=== PATIENT | female | born 1980 | race Caucasian/White ===

== ENCOUNTER 2017-11-02 08:31 | Day surgery (SDC) | payer BC ==
[~2017-11-02] VITALS: Ht 157.5 cm; Wt 76.2 kg
[~2017-11-02 08:31] MED LIST: ACYC400 PO; ALBU90OI INH; Advil200 M1 PO; CYCL10 PO; DIPH50 PO; Flonase 0.05% N16 GM; Ortho Tri-Cycl1 EACH PO; Pulmicort Flex90 MCG INH; TUMS PO; [UNRECOGNIZED DRUG - OTHER] PO
== END 2017-11-02 22:49 | disposition home or self-care (01) ==
LOC: ORSCMMR 08:31
PROVIDERS: Surgery
PROC: 0WUF0JZ Supplement Abdominal Wall with Synthetic Substitute, Open Approach (ICD-10-PCS; principal; 2017-11-02 10:00)
DX: K43.6 Other and unspecified ventral hernia with obstruction, without gangrene (principal); J45.909 Unspecified asthma, uncomplicated; Z79.899 Other long term (current) drug therapy
CPT/HCPCS: C1781; J0690; J1100; J2250; J2405; J2710; J3010; J7120

== ENCOUNTER 2017-11-23 13:45 | Emergency (ER) | payer BC ==
[~2017-11-23] VITALS: Ht 152.4 cm; Wt 90.7 kg
[2017-11-23] MEDS ORDERED: TRINESSA LO TA1 EACH (14:35)
[2017-11-23] MEDS ORDERED: Hydrocodone-Ap1 EA23 (14:35)
[2017-11-23 15:12] LABS: BASOPHILS ABSOLUTE AUTO 0.06 K/mm3 (0.00-0.23); BASOPHILS PERCENT AUTO 1 % (0-2); EOSINOPHILS ABSOLUTE AUTO 0.09 K/mm3 (0.00-0.68); EOSINOPHILS PERCENT AUTO 1 % (0-6); Hematocrit 38.5 % (33.0-51.0); Hemoglobin 12.7 g/dL (11.5-16.0); IMMATURE GRAN ABSOLUTE AUTO 0.01 K/mm3 (0.00-0.10); IMMATURE GRAN PERCENT AUTO 0 % (0-1); LYMPHOCYTES ABSOLUTE AUTO 2.14 K/mm3 (0.84-5.20); LYMPHOCYTES PERCENT AUTO 27 % (21-46); MONOCYTES ABSOLUTE AUTO 0.52 K/mm3 (0.16-1.47); MONOCYTES PERCENT AUTO 7 % (4-13); Mean Corpuscular HGB 29.3 pg (26.0-34.0); Mean Corpuscular Volume 89 fL (80-100); Mean Platelet Volume 10.1 fL (9.1-12.4); NEUTROPHILS ABSOLUTE AUTO 5.03 K/mm3 (1.96-9.15); NEUTROPHILS PERCENT AUTO 64 % (41-73); Platelet Count 363 K/mm3 (150-400); RDW Coefficient Variation 12.8 % (11.7-14.2); Red Blood Cell Count 4.33 M/mm3 (3.80-5.20); White Blood Cell Count 7.85 K/mm3 (4.00-11.30)
[2017-11-23 15:36] LABS: Alanine Aminotransfer (ALT/SGP 21 U/L (12-78); Albumin, Blood 3.9 g/dL (3.4-5.0); Albumin/Globulin Ratio 1.1 (0.8-1.8); Alk Phos 21 U/L (50-136); Anion Gap 9 mmol/L (6-16); Aspartate Aminotrans (AST/SGOT 14 U/L (12-37); Bilirubin, Total 0.3 mg/dL (0.1-1.0); Blood Urea Nitrogen 12 mg/dL (8-24); Bun/Creatinine Ratio 15.8 (12.0-20.0); CO2, Blood 23 mmol/L (21-32); Calcium, Blood 8.7 mg/dL (8.5-10.1); Chloride, Blood 107 mmol/L (98-108); Creatinine, Blood 0.76 mg/dL (0.40-1.00); Globulin, Blood 3.7 g/dL (2.2-4.0); Glomerular Filtration Rate >60 (60-); Glucose, Blood 85 mg/dL (70-99); Potassium, Blood 3.6 mmol/L (3.5-5.5); Sodium, Blood 139 mmol/L (136-145); Total Protein, Blood 7.6 g/dL (6.4-8.2)
[2017-11-23] MEDS ORDERED: LEVE500 PO (18:31)
[2017-11-23] MEDS ORDERED: DEXA4 PO (18:31)
== END 2017-11-23 18:46 | disposition home or self-care (01) ==
LOC: ER 13:45
PROVIDERS: Physician Assistant
DX: G93.89 Other specified disorders of brain (principal); H57.9 Unspecified disorder of eye and adnexa; J45.909 Unspecified asthma, uncomplicated; Z79.899 Other long term (current) drug therapy; Z79.1 Long term (current) use of non-steroidal anti-inflammatories (NSAID)
CPT/HCPCS: 36415; 70553; 80053; 81000; 81025; 85025; A9577

== ENCOUNTER 2017-11-30 00:07 | Day surgery (SDC) | payer BC ==
[~2017-11-30 00:07] MED LIST changes: +DEXA4 PO; +Hydrocodone-Ap1 EA23; +LEVE500 PO; +TRINESSA LO TA1 EACH
== END 2017-11-30 15:30 | disposition home or self-care (01) ==
LOC: ATC 00:07
DX: G93.9 Disorder of brain, unspecified (principal); G35 Multiple sclerosis; F41.9 Anxiety disorder, unspecified; Z87.891 Personal history of nicotine dependence; J45.909 Unspecified asthma, uncomplicated
CPT/HCPCS: 96365; J2930

== ENCOUNTER 2017-12-01 08:29 | Day surgery (SDC) | payer BC | END 2017-12-01 14:10 | disposition home or self-care (01) | LOC: ATC 08:29 | DX: G93.9 Disorder of brain, unspecified (principal); G35 Multiple sclerosis; F41.9 Anxiety disorder, unspecified; Z87.891 Personal history of nicotine dependence | CPT/HCPCS: 96365; J2930 ==

== ENCOUNTER 2017-12-02 00:06 | Day surgery (SDC) | payer BC | END 2017-12-02 14:09 | disposition home or self-care (01) | LOC: ATC 00:06 | DX: G93.9 Disorder of brain, unspecified (principal); G35 Multiple sclerosis; F41.9 Anxiety disorder, unspecified; J45.909 Unspecified asthma, uncomplicated; Z87.891 Personal history of nicotine dependence | CPT/HCPCS: 96365; J2930 ==

== ENCOUNTER 2018-07-22 16:41 | Emergency (ER) | payer BC ==
[~2018-07-22] VITALS: Ht 157.5 cm; Wt 61.7 kg
[2018-07-22] MEDS ORDERED: COPAXONE40 MG/1 ML SC (17:02)
[2018-07-22] MEDS ORDERED: VENL150ER PO (17:02)
[2018-07-22] MEDS ORDERED: PROP10 PO (17:03)
[2018-07-22] MEDS ORDERED: ALPR1 PO (17:03)
[2018-07-22 17:05] LABS: Source, Urine Clean Catch
[2018-07-22 17:17] LABS: Appearance, Urine Clear (Clear); Bilirubin, Urine Neg (Neg); Blood, Urine 2+ (Neg); Color, Urine Yellow (P-Yellow); Glucose Qualitative, Urine Neg (Neg); Ketones, Urine Neg (Neg); Leukocyte Esterase, Urine Neg (Neg); Nitrite, Urine Neg (Neg); Protein, Urine Neg (Neg); Specific Gravity, Urine 1.015 (1.003-1.022); Urobilinogen, Urine NORM (Normal)
[2018-07-22 17:20] LABS: BASOPHILS ABSOLUTE AUTO 0.04 K/mm3 (0.00-0.23); BASOPHILS PERCENT AUTO 1 % (0-2); EOSINOPHILS PERCENT AUTO 2 % (0-6); Hematocrit 39.2 % (33.0-51.0); Hemoglobin 12.7 g/dL (11.5-16.0); IMMATURE GRAN ABSOLUTE AUTO 0.01 K/mm3 (0.00-0.10); IMMATURE GRAN PERCENT AUTO 0 % (0-1); LYMPHOCYTES ABSOLUTE AUTO 1.24 K/mm3 (0.84-5.20); LYMPHOCYTES PERCENT AUTO 19 % (21-46); MONOCYTES ABSOLUTE AUTO 0.38 K/mm3 (0.16-1.47); MONOCYTES PERCENT AUTO 6 % (4-13); Mean Corpuscular HGB 29.6 pg (26.0-34.0); Mean Corpuscular HGB Conc 32.4 g/dL (31.5-36.5); Mean Corpuscular Volume 91 fL (80-100); Mean Platelet Volume 10.2 fL (9.1-12.4); NEUTROPHILS ABSOLUTE AUTO 4.77 K/mm3 (1.96-9.15); NEUTROPHILS PERCENT AUTO 73 % (41-73); Platelet Count 324 K/mm3 (150-400); RDW Coefficient Variation 13.2 % (11.7-14.2); RDW Standard Deviation 44.7 fL (35.1-46.3); Red Blood Cell Count 4.29 M/mm3 (3.80-5.20); White Blood Cell Count 6.54 K/mm3 (4.00-11.30)
[2018-07-22 17:37] LABS: U Amphetamine Screen Not Detected; U Barbituate Screen Not Detected; U Benzodiazapine Screen DETECTED; U Buprenorphine Screen Not Detected; U Cannabinoids Screen DETECTED; U Cocaine Screen Not Detected; U Methadone Screen Not Detected; U Methamphetamine Screen Not Detected; U Opiates Screen Not Detected; U Oxycodone Screen Not Detected; U Phencyclidine Screen Not Detected; U Propoxyphene Screen Not Detected
[2018-07-22 17:42] LABS: Squamous Epithelial Cells Mod /hpf (Few)
[2018-07-22 17:43] LABS: Bacteria Rare /hpf; Mucus Mod (0-Heavy); White Blood Cells, Urine Not Seen /hpf (0-5)
[2018-07-22 17:45] LABS: Alanine Aminotransfer (ALT/SGP 24 U/L (12-78); Albumin/Globulin Ratio 1.1 (0.8-1.8); Alk Phos 23 U/L (50-136); Anion Gap 10 mmol/L (6-16); Aspartate Aminotrans (AST/SGOT 18 U/L (12-37); Bilirubin, Total 0.2 mg/dL (0.1-1.0); Blood Urea Nitrogen 12 mg/dL (8-24); Bun/Creatinine Ratio 15.1 (12.0-20.0); CO2, Blood 23 mmol/L (21-32); Calcium, Blood 8.7 mg/dL (8.5-10.1); Chloride, Blood 108 mmol/L (98-108); Creatinine, Blood 0.79 mg/dL (0.40-1.00); Ethanol (Alcohol), Blood, Med 5 mg/dL; Globulin, Blood 3.7 g/dL (2.2-4.0); Glomerular Filtration Rate >60 (60-); Glucose, Blood 100 mg/dL (70-99); Potassium, Blood 3.8 mmol/L (3.5-5.5); Salicylate <1.7 mg/dL (2.8-20.0); Sodium, Blood 141 mmol/L (136-145); Total Protein, Blood 7.7 g/dL (6.4-8.2)
[2018-07-22 17:55] LABS: Acetaminophen, Random <2.0 ug/mL (10.0-30.0)
== END 2018-07-22 21:00 | disposition home or self-care (01) ==
LOC: ER 16:41
PROVIDERS: Physician Assistant
DX: F32.9 Major depressive disorder, single episode, unspecified (principal); F43.9 Reaction to severe stress, unspecified; Z79.899 Other long term (current) drug therapy; J45.909 Unspecified asthma, uncomplicated; Z87.891 Personal history of nicotine dependence
CPT/HCPCS: 80053; 81001; 81025; 84443; 85025; 99284; G0480; Q3014

== ENCOUNTER → 2019-02-25 | Outpatient (CLI) | payer BC ==
[~2019-02-25] MED LIST changes: +ALPR1 PO; +COPAXONE40 MG/1 ML SC; +PROP10 PO; +VENL150ER PO
== END | disposition home or self-care (01) ==
LOC: LAB 19:05 → LAB SHORT 19:05
PROVIDERS: Nurse Practitioner
DX: Z01.419 Encounter for gynecological examination (general) (routine) without abnormal findings (principal)
CPT/HCPCS: G0145

== ENCOUNTER 2020-09-08 20:06 | Emergency (ER) | payer BC ==
[~2020-09-08] VITALS: Ht 157.5 cm; Wt 68.0 kg
[2020-09-08] MEDS ORDERED: LITHIUM CARBON PO (22:23)
[2020-09-08] MEDS ORDERED: PREGABALIN75 MG PO (22:24)
[2020-09-08] MEDS ORDERED: CLONAZEPAM1 MG PO (22:24)
[2020-09-08] MEDS ORDERED: ZANAFLEX4 M4 PO (22:25)
== END 2020-09-08 23:53 | disposition short-term general hospital (02) ==
LOC: ER 20:06
DX: G35 Multiple sclerosis (principal); M79.605 Pain in left leg; M79.604 Pain in right leg; J45.909 Unspecified asthma, uncomplicated; Z79.899 Other long term (current) drug therapy
CPT/HCPCS: 96374; 96375; 99285-25; J1100; J1170; J2405

== ENCOUNTER 2022-12-01 06:13 | Day surgery (SDC) | payer BC ==
[~2022-12-01] VITALS: Ht 157.5 cm; Wt 81.8 kg
[~2022-12-01 06:13] MED LIST changes: +CLONAZEPAM1 MG PO; +LITHIUM CARBON PO; +PREGABALIN75 MG PO; +ZANAFLEX4 M4 PO
[2022-12-01] MEDS ORDERED: VENLAFAXINE HC150 MG PO (06:59)
--- NOTE | 2022-12-01 07:20 | NUR ---
12/01/22 0720 [facility] [place] AT 0700 AT PT'S BEDSIDE.
--- NOTE | 2022-12-01 08:52 | NUR ---
12/01/22 0852 Liliya Stoddard POPLITTEAL BLOCK COMPLETED IN OR BY DR WISE. PATIENT TOLERATED WELL. VITAL SIGNS STABLE. FOR LEFT HIP GRAFT HARVEST, PATIENT IN LATERAL POSITION WITH LEFT ARM DRAPED OVER CHEST. PILLOW PLACED UNDER ARM. PILLOW PLACED UNDER RIGHT KNEE AND ANKLE WITH GEL PAD PLACED ON TOP. GEL PAD PLACED UNDER SAFETY STRAP AT THE RIGHT KNEE.
[2022-12-01 14:17] VITALS: BP 101/69
== END 2022-12-01 15:00 | disposition home or self-care (01) ==
LOC: ORSCSDS 06:13
PROVIDERS: Orthopaedic Surgery
PROC: 0SGG04Z Fusion of Left Ankle Joint with Internal Fixation Device, Open Approach (ICD-10-PCS; principal; 2022-12-01 07:30)
PROC: 0QB30ZZ Excision of Left Pelvic Bone, Open Approach (ICD-10-PCS; principal; 2022-12-01 07:30)
PROC: 0QUM07Z Supplement Left Tarsal with Autologous Tissue Substitute, Open Approach (ICD-10-PCS; principal; 2022-12-01 07:30)
PROC: 0SGJ04Z Fusion of Left Tarsal Joint with Internal Fixation Device, Open Approach (ICD-10-PCS; principal; 2022-12-01 07:30)
DX: M87.172 Osteonecrosis due to drugs, left ankle (principal); J45.909 Unspecified asthma, uncomplicated; Z79.899 Other long term (current) drug therapy; G35 Multiple sclerosis; F41.8 Other specified anxiety disorders
CPT/HCPCS: 73610; 73630; A9270; C1713; C1734; C1769; J0171; J0690; J0735; J1100; J1885; J2250; J2370; J2405; J2704; J2765; J2795; J3010; J3370; J7120

== ENCOUNTER 2023-02-02 01:09 | Day surgery (SDC) | payer BC ==
[~2023-02-02 01:09] MED LIST changes: +VENLAFAXINE HC150 MG PO
== END 2023-02-02 22:42 | disposition home or self-care (01) ==
LOC: WOUND 01:09
DX: T81.32XD Disruption of internal operation (surgical) wound, not elsewhere classified, subsequent encounter (principal); T86.838 Other complications of bone graft; M87.172 Osteonecrosis due to drugs, left ankle; Y83.8 Other surgical procedures as the cause of abnormal reaction of the patient, or of later complication, without mention of misadventure at the time of the procedure
CPT/HCPCS: G0463

== ENCOUNTER 2023-02-09 04:00 | Day surgery (SDC) | payer BC | END 2023-02-09 22:35 | disposition home or self-care (01) | LOC: WOUND 04:00 | DX: T81.32XD Disruption of internal operation (surgical) wound, not elsewhere classified, subsequent encounter (principal); M87.172 Osteonecrosis due to drugs, left ankle; T86.838 Other complications of bone graft | CPT/HCPCS: G0463 ==

== ENCOUNTER 2023-02-14 03:42 | Day surgery (SDC) | payer BC | END 2023-02-14 23:06 | disposition home or self-care (01) | LOC: HBO 03:42 | DX: T86.838 Other complications of bone graft (principal); T81.32XS Disruption of internal operation (surgical) wound, not elsewhere classified, sequela; M87.172 Osteonecrosis due to drugs, left ankle | CPT/HCPCS: G0277 ==

== ENCOUNTER 2023-02-15 02:56 | Day surgery (SDC) | payer BC | END 2023-02-15 22:50 | disposition home or self-care (01) | LOC: HBO 02:56 | DX: T86.838 Other complications of bone graft (principal); T81.32XS Disruption of internal operation (surgical) wound, not elsewhere classified, sequela; M87.172 Osteonecrosis due to drugs, left ankle; Y83.8 Other surgical procedures as the cause of abnormal reaction of the patient, or of later complication, without mention of misadventure at the time of the procedure | CPT/HCPCS: G0277 ==

== ENCOUNTER 2023-02-20 02:57 | Day surgery (SDC) | payer BC | END 2023-02-20 23:21 | disposition home or self-care (01) | LOC: HBO 02:57 | DX: T86.838 Other complications of bone graft (principal); T81.32XS Disruption of internal operation (surgical) wound, not elsewhere classified, sequela; M85.17 Skeletal fluorosis, ankle and foot | CPT/HCPCS: G0277 ==

== ENCOUNTER 2023-02-21 01:28 | Day surgery (SDC) | payer BC | END 2023-02-21 23:18 | disposition home or self-care (01) | LOC: HBO 01:28 | DX: T86.838 Other complications of bone graft (principal); T81.32XS Disruption of internal operation (surgical) wound, not elsewhere classified, sequela; M87.172 Osteonecrosis due to drugs, left ankle | CPT/HCPCS: G0277 ==

== ENCOUNTER 2023-02-22 04:23 | Day surgery (SDC) | payer BC | END 2023-02-22 23:01 | disposition home or self-care (01) | LOC: HBO 04:23 | DX: T86.838 Other complications of bone graft (principal); T81.32XS Disruption of internal operation (surgical) wound, not elsewhere classified, sequela; M87.172 Osteonecrosis due to drugs, left ankle | CPT/HCPCS: G0277 ==

== ENCOUNTER 2023-02-22 21:00 | Emergency (ER) | payer BC ==
[~2023-02-22] VITALS: Ht 157.5 cm; Wt 81.7 kg
[2023-02-22 21:15] VITALS: BP 121/81
[2023-03-01] MEDS ORDERED: GABA100 (10:49)
[2023-03-01] MEDS ORDERED: MOTRIN IB200 MG (10:49)
== END 2023-02-22 23:21 | disposition home or self-care (01) ==
LOC: ER 21:00
DX: S52.614A Nondisplaced fracture of right ulna styloid process, initial encounter for closed fracture (principal); S52.321A Displaced transverse fracture of shaft of right radius, initial encounter for closed fracture; S52.531A Colles' fracture of right radius, initial encounter for closed fracture; J45.909 Unspecified asthma, uncomplicated; Z87.891 Personal history of nicotine dependence; W18.30XA Fall on same level, unspecified, initial encounter
CPT/HCPCS: 29125; 73110; 96372-59; 99283-25; J1885

== ENCOUNTER 2023-02-26 02:25 | Day surgery (SDC) | payer BC ==
[2023-03-01] MEDS ORDERED: GABA100 (10:49)
[2023-03-01] MEDS ORDERED: MOTRIN IB200 MG (10:49)
== END 2023-02-26 23:00 | disposition home or self-care (01) ==
LOC: HBO 02:25
DX: T86.838 Other complications of bone graft (principal); T81.32XS Disruption of internal operation (surgical) wound, not elsewhere classified, sequela; M85.17 Skeletal fluorosis, ankle and foot
CPT/HCPCS: G0277

== ENCOUNTER 2023-02-26 02:29 | Day surgery (SDC) | payer BC | END 2023-02-26 23:00 | disposition home or self-care (01) | LOC: WOUND 02:29 | DX: T86.838 Other complications of bone graft (principal); T81.32XS Disruption of internal operation (surgical) wound, not elsewhere classified, sequela; M87.172 Osteonecrosis due to drugs, left ankle | CPT/HCPCS: G0463 ==

== ENCOUNTER 2023-03-02 10:55 | Day surgery (SDC) | payer BC ==
[~2023-03-02] VITALS: Ht 157.5 cm; Wt 79.3 kg
[2023-03-02] VITALS (11 sets, daily range): BP systolic 128–166; BP diastolic 80–124
[~2023-03-02 10:55] MED LIST changes: +GABA100; +MOTRIN IB200 MG
--- NOTE | 2023-03-02 11:51 | NUR ---
Ambulatory in Day Surgery. History, Chart, Medications and Allergies reviewed before start of procedure. Lungs clear T/O to Auscultation. Patient confirms NPO status and agrees with scheduled surgery. Pre-Op teaching done. Pt verbalizes understanding. Patient States Post-Procedure ride home has been arranged.
--- NOTE | 2023-03-02 11:57 | NUR ---
PT BELONGINGS WITH PT MOM FOR SAFEKEEPING.
== END 2023-03-02 15:57 | disposition home or self-care (01) ==
LOC: ORSCMMR 10:55 → ORD 12:30 → ORSCMMR 12:30
PROVIDERS: Orthopaedic Surgery
PROC: 0PSH04Z Reposition Right Radius with Internal Fixation Device, Open Approach (ICD-10-PCS; principal; 2023-03-02 13:00)
DX: S52.551A Other extraarticular fracture of lower end of right radius, initial encounter for closed fracture (principal); W18.30XA Fall on same level, unspecified, initial encounter; J45.909 Unspecified asthma, uncomplicated; G35 Multiple sclerosis; Z79.899 Other long term (current) drug therapy; F41.9 Anxiety disorder, unspecified; F32.A Depression, unspecified
CPT/HCPCS: A9270; C1713; J0690; J1100; J1170; J1885; J2405; J2704; J3010; J7120

== ENCOUNTER 2023-03-05 02:07 | Day surgery (SDC) | payer BC | END 2023-03-05 22:41 | disposition home or self-care (01) | LOC: HBO 02:07 | DX: T86.838 Other complications of bone graft (principal); T81.32XS Disruption of internal operation (surgical) wound, not elsewhere classified, sequela; M85.17 Skeletal fluorosis, ankle and foot | CPT/HCPCS: G0277 ==

== ENCOUNTER 2023-03-05 08:00 | Day surgery (SDC) | payer BC | END 2023-03-05 23:59 | disposition home or self-care (01) | LOC: WOUND 08:00 | DX: T86.838 Other complications of bone graft (principal); T81.32XS Disruption of internal operation (surgical) wound, not elsewhere classified, sequela; M87.172 Osteonecrosis due to drugs, left ankle | CPT/HCPCS: G0463 ==

== ENCOUNTER 2023-03-07 02:27 | Day surgery (SDC) | payer BC | END 2023-03-07 23:10 | disposition home or self-care (01) | LOC: HBO 02:27 | DX: T86.838 Other complications of bone graft (principal); T81.32XS Disruption of internal operation (surgical) wound, not elsewhere classified, sequela; M85.17 Skeletal fluorosis, ankle and foot | CPT/HCPCS: G0277 ==

== ENCOUNTER 2023-03-09 00:54 | Day surgery (SDC) | payer BC | END 2023-03-09 22:54 | disposition home or self-care (01) | LOC: HBO 00:54 | DX: T86.838 Other complications of bone graft (principal); T81.32XS Disruption of internal operation (surgical) wound, not elsewhere classified, sequela; M85.17 Skeletal fluorosis, ankle and foot | CPT/HCPCS: G0277 ==

== ENCOUNTER 2023-03-12 02:18 | Day surgery (SDC) | payer BC | END 2023-03-12 22:59 | disposition home or self-care (01) | LOC: HBO 02:18 | DX: T86.838 Other complications of bone graft (principal); T81.32XS Disruption of internal operation (surgical) wound, not elsewhere classified, sequela; M85.17 Skeletal fluorosis, ankle and foot | CPT/HCPCS: G0277 ==

== ENCOUNTER 2023-03-12 02:25 | Day surgery (SDC) | payer BC | END 2023-03-12 22:59 | disposition home or self-care (01) | LOC: WOUND 02:25 | DX: T86.838 Other complications of bone graft (principal); T81.32XS Disruption of internal operation (surgical) wound, not elsewhere classified, sequela; M87.172 Osteonecrosis due to drugs, left ankle | CPT/HCPCS: G0463 ==

== ENCOUNTER 2023-03-13 01:42 | Day surgery (SDC) | payer BC | END 2023-03-13 22:46 | disposition home or self-care (01) | LOC: HBO 01:42 | DX: T86.838 Other complications of bone graft (principal); T81.32XS Disruption of internal operation (surgical) wound, not elsewhere classified, sequela; M85.17 Skeletal fluorosis, ankle and foot | CPT/HCPCS: G0277 ==

== ENCOUNTER 2023-03-14 05:34 | Day surgery (SDC) | payer BC | END 2023-03-14 22:46 | disposition home or self-care (01) | LOC: HBO 05:34 | DX: T86.838 Other complications of bone graft (principal); T81.32XS Disruption of internal operation (surgical) wound, not elsewhere classified, sequela; M87.172 Osteonecrosis due to drugs, left ankle | CPT/HCPCS: G0277 ==

== ENCOUNTER 2023-03-15 04:02 | Day surgery (SDC) | payer BC | END 2023-03-15 23:20 | disposition home or self-care (01) | LOC: HBO 04:02 | DX: T86.838 Other complications of bone graft (principal); T81.32XS Disruption of internal operation (surgical) wound, not elsewhere classified, sequela; Y83.8 Other surgical procedures as the cause of abnormal reaction of the patient, or of later complication, without mention of misadventure at the time of the procedure; M87.172 Osteonecrosis due to drugs, left ankle | CPT/HCPCS: G0277 ==

== ENCOUNTER 2023-03-19 00:50 | Day surgery (SDC) | payer BC | END 2023-03-19 22:47 | disposition home or self-care (01) | LOC: HBO 00:50 | DX: T86.838 Other complications of bone graft (principal); T81.32XS Disruption of internal operation (surgical) wound, not elsewhere classified, sequela; M87.172 Osteonecrosis due to drugs, left ankle | CPT/HCPCS: G0277 ==

== ENCOUNTER 2023-03-19 00:53 | Day surgery (SDC) | payer BC | END 2023-03-19 22:48 | disposition home or self-care (01) | LOC: WOUND 00:53 | DX: T86.838 Other complications of bone graft (principal); T81.32XS Disruption of internal operation (surgical) wound, not elsewhere classified, sequela; M87.172 Osteonecrosis due to drugs, left ankle | CPT/HCPCS: G0277; G0463 ==

== ENCOUNTER 2023-03-20 02:18 | Day surgery (SDC) | payer BC | END 2023-03-20 22:35 | disposition home or self-care (01) | LOC: HBO 02:18 | DX: T86.838 Other complications of bone graft (principal); T81.32XS Disruption of internal operation (surgical) wound, not elsewhere classified, sequela; M87.172 Osteonecrosis due to drugs, left ankle | CPT/HCPCS: G0277 ==

== ENCOUNTER 2023-03-21 02:58 | Day surgery (SDC) | payer BC | END 2023-03-21 22:55 | disposition home or self-care (01) | LOC: HBO 02:58 | DX: T86.838 Other complications of bone graft (principal); T81.32XS Disruption of internal operation (surgical) wound, not elsewhere classified, sequela; M87.172 Osteonecrosis due to drugs, left ankle | CPT/HCPCS: G0277 ==

== ENCOUNTER 2023-03-22 00:18 | Day surgery (SDC) | payer BC | END 2023-03-22 22:49 | disposition home or self-care (01) | LOC: HBO 00:18 | DX: T86.838 Other complications of bone graft (principal); T81.32XS Disruption of internal operation (surgical) wound, not elsewhere classified, sequela; M87.172 Osteonecrosis due to drugs, left ankle | CPT/HCPCS: G0277 ==

== ENCOUNTER 2023-03-26 01:23 | Day surgery (SDC) | payer BC | END 2023-03-26 22:55 | disposition home or self-care (01) | LOC: WOUND 01:23 | DX: T81.30XA Disruption of wound, unspecified, initial encounter (principal); T81.89XA Other complications of procedures, not elsewhere classified, initial encounter; M87.172 Osteonecrosis due to drugs, left ankle; Y83.8 Other surgical procedures as the cause of abnormal reaction of the patient, or of later complication, without mention of misadventure at the time of the procedure | CPT/HCPCS: G0463 ==

== ENCOUNTER 2023-03-26 01:28 | Day surgery (SDC) | payer BC | END 2023-03-26 22:55 | disposition home or self-care (01) | LOC: HBO 01:28 | DX: T86.838 Other complications of bone graft (principal); T81.32XS Disruption of internal operation (surgical) wound, not elsewhere classified, sequela; M87.172 Osteonecrosis due to drugs, left ankle | CPT/HCPCS: G0277 ==

== ENCOUNTER 2023-03-29 03:32 | Day surgery (SDC) | payer BC | END 2023-03-29 22:43 | disposition home or self-care (01) | LOC: HBO 03:32 | DX: T86.838 Other complications of bone graft (principal); T81.32XS Disruption of internal operation (surgical) wound, not elsewhere classified, sequela; Y83.8 Other surgical procedures as the cause of abnormal reaction of the patient, or of later complication, without mention of misadventure at the time of the procedure; M87.172 Osteonecrosis due to drugs, left ankle | CPT/HCPCS: G0277 ==

== ENCOUNTER 2023-03-30 00:58 | Day surgery (SDC) | payer BC | END 2023-03-30 22:47 | disposition home or self-care (01) | LOC: HBO 00:58 | DX: T86.838 Other complications of bone graft (principal); T81.32XA Disruption of internal operation (surgical) wound, not elsewhere classified, initial encounter; M87.172 Osteonecrosis due to drugs, left ankle | CPT/HCPCS: G0277 ==

== ENCOUNTER 2023-04-03 08:43 | Day surgery (SDC) | payer BC | END 2023-04-03 22:51 | disposition home or self-care (01) | LOC: WOUND 08:43 | DX: T86.838 Other complications of bone graft (principal); T81.32XA Disruption of internal operation (surgical) wound, not elsewhere classified, initial encounter; M87.172 Osteonecrosis due to drugs, left ankle; Y83.8 Other surgical procedures as the cause of abnormal reaction of the patient, or of later complication, without mention of misadventure at the time of the procedure | CPT/HCPCS: A9270; G0463 ==

== ENCOUNTER 2023-04-04 02:12 | Day surgery (SDC) | payer BC | END 2023-04-04 23:02 | disposition home or self-care (01) | LOC: HBO 02:12 | DX: T86.838 Other complications of bone graft (principal); T81.32XS Disruption of internal operation (surgical) wound, not elsewhere classified, sequela; M87.172 Osteonecrosis due to drugs, left ankle | CPT/HCPCS: G0277 ==

== ENCOUNTER 2023-04-05 01:28 | Day surgery (SDC) | payer BC | END 2023-04-05 22:40 | disposition home or self-care (01) | LOC: HBO 01:28 | DX: T86.838 Other complications of bone graft (principal); T81.32XS Disruption of internal operation (surgical) wound, not elsewhere classified, sequela; M87.172 Osteonecrosis due to drugs, left ankle; X58.XXXS Exposure to other specified factors, sequela | CPT/HCPCS: G0277 ==

== ENCOUNTER 2023-04-06 00:48 | Day surgery (SDC) | payer BC | END 2023-04-06 22:52 | disposition home or self-care (01) | LOC: HBO 00:48 | DX: T86.838 Other complications of bone graft (principal); T81.32XS Disruption of internal operation (surgical) wound, not elsewhere classified, sequela; M87.172 Osteonecrosis due to drugs, left ankle; Y83.8 Other surgical procedures as the cause of abnormal reaction of the patient, or of later complication, without mention of misadventure at the time of the procedure | CPT/HCPCS: G0277 ==

== ENCOUNTER 2023-04-09 01:13 | Day surgery (SDC) | payer BC | END 2023-04-09 22:49 | disposition home or self-care (01) | LOC: HBO 01:13 | DX: T86.838 Other complications of bone graft (principal); T81.32XS Disruption of internal operation (surgical) wound, not elsewhere classified, sequela; M87.172 Osteonecrosis due to drugs, left ankle; Y83.8 Other surgical procedures as the cause of abnormal reaction of the patient, or of later complication, without mention of misadventure at the time of the procedure | CPT/HCPCS: G0277 ==

== ENCOUNTER 2023-04-09 01:32 | Day surgery (SDC) | payer BC | END 2023-04-09 22:49 | disposition home or self-care (01) | LOC: WOUND 01:32 | DX: T86.838 Other complications of bone graft (principal); T81.32XS Disruption of internal operation (surgical) wound, not elsewhere classified, sequela; Y83.8 Other surgical procedures as the cause of abnormal reaction of the patient, or of later complication, without mention of misadventure at the time of the procedure; M87.172 Osteonecrosis due to drugs, left ankle | CPT/HCPCS: G0463 ==

== ENCOUNTER 2023-04-12 01:45 | Day surgery (SDC) | payer BC | END 2023-04-12 22:54 | disposition home or self-care (01) | LOC: HBO 01:45 | DX: T86.838 Other complications of bone graft (principal); T81.32XS Disruption of internal operation (surgical) wound, not elsewhere classified, sequela; Y83.8 Other surgical procedures as the cause of abnormal reaction of the patient, or of later complication, without mention of misadventure at the time of the procedure; M87.172 Osteonecrosis due to drugs, left ankle | CPT/HCPCS: G0277 ==

== ENCOUNTER 2023-04-13 00:50 | Day surgery (SDC) | payer BC | END 2023-04-13 22:47 | disposition home or self-care (01) | LOC: HBO 00:50 | DX: T86.838 Other complications of bone graft (principal); T81.32XS Disruption of internal operation (surgical) wound, not elsewhere classified, sequela; M87.172 Osteonecrosis due to drugs, left ankle | CPT/HCPCS: G0277 ==

== ENCOUNTER 2023-04-16 01:50 | Day surgery (SDC) | payer BC | END 2023-04-16 23:02 | disposition home or self-care (01) | LOC: WOUND 01:50 | DX: T86.838 Other complications of bone graft (principal); M87.172 Osteonecrosis due to drugs, left ankle; T81.32XS Disruption of internal operation (surgical) wound, not elsewhere classified, sequela; Y83.8 Other surgical procedures as the cause of abnormal reaction of the patient, or of later complication, without mention of misadventure at the time of the procedure | CPT/HCPCS: G0463 ==

== ENCOUNTER 2023-04-16 01:54 | Day surgery (SDC) | payer BC | END 2023-04-16 23:02 | disposition home or self-care (01) | LOC: HBO 01:54 | DX: T86.838 Other complications of bone graft (principal); T81.32XS Disruption of internal operation (surgical) wound, not elsewhere classified, sequela; M87.172 Osteonecrosis due to drugs, left ankle | CPT/HCPCS: G0277 ==

== ENCOUNTER 2023-04-17 02:28 | Day surgery (SDC) | payer BC | END 2023-04-17 23:00 | disposition home or self-care (01) | LOC: HBO 02:28 | DX: T86.838 Other complications of bone graft (principal); T81.32XS Disruption of internal operation (surgical) wound, not elsewhere classified, sequela; M85.17 Skeletal fluorosis, ankle and foot | CPT/HCPCS: G0277 ==

== ENCOUNTER 2023-04-23 02:02 | Day surgery (SDC) | payer BC | END 2023-04-23 23:05 | disposition home or self-care (01) | LOC: HBO 02:02 | DX: T86.838 Other complications of bone graft (principal); T81.32XS Disruption of internal operation (surgical) wound, not elsewhere classified, sequela; M87.172 Osteonecrosis due to drugs, left ankle | CPT/HCPCS: G0277 ==

== ENCOUNTER 2023-04-25 01:52 | Day surgery (SDC) | payer BC | END 2023-04-25 22:59 | disposition home or self-care (01) | LOC: HBO 01:52 | DX: T86.838 Other complications of bone graft (principal); T81.32XS Disruption of internal operation (surgical) wound, not elsewhere classified, sequela; M87.172 Osteonecrosis due to drugs, left ankle | CPT/HCPCS: G0277 ==

== ENCOUNTER 2023-05-02 02:21 | Day surgery (SDC) | payer BC | END 2023-05-02 23:50 | disposition home or self-care (01) | LOC: HBO 02:21 | DX: T86.838 Other complications of bone graft (principal); T81.32XS Disruption of internal operation (surgical) wound, not elsewhere classified, sequela; M87.172 Osteonecrosis due to drugs, left ankle | CPT/HCPCS: G0277 ==

== ENCOUNTER 2023-05-03 08:00 | Day surgery (SDC) | payer BC | END 2023-05-03 23:59 | disposition home or self-care (01) | LOC: WOUND 08:00 | DX: T86.838 Other complications of bone graft (principal); T81.32XS Disruption of internal operation (surgical) wound, not elsewhere classified, sequela; M87.172 Osteonecrosis due to drugs, left ankle | CPT/HCPCS: 87081; 87147; G0463 ==

== ENCOUNTER 2023-05-03 08:00 | Day surgery (SDC) | payer BC | END 2023-05-03 23:59 | disposition home or self-care (01) | LOC: HBO 08:00 | DX: T86.838 Other complications of bone graft (principal); T81.32XS Disruption of internal operation (surgical) wound, not elsewhere classified, sequela; M87.172 Osteonecrosis due to drugs, left ankle | CPT/HCPCS: G0277 ==

== ENCOUNTER 2023-05-04 00:31 | Day surgery (SDC) | payer BC | END 2023-05-04 22:49 | disposition home or self-care (01) | LOC: HBO 00:31 | DX: T86.838 Other complications of bone graft (principal); T81.32XS Disruption of internal operation (surgical) wound, not elsewhere classified, sequela; M87.172 Osteonecrosis due to drugs, left ankle; Y83.8 Other surgical procedures as the cause of abnormal reaction of the patient, or of later complication, without mention of misadventure at the time of the procedure | CPT/HCPCS: G0277 ==

== ENCOUNTER 2023-05-10 01:54 | Day surgery (SDC) | payer BC | END 2023-05-10 23:37 | disposition home or self-care (01) | LOC: WOUND 01:54 | DX: T81.32XS Disruption of internal operation (surgical) wound, not elsewhere classified, sequela (principal); T86.838 Other complications of bone graft; M87.172 Osteonecrosis due to drugs, left ankle; Y83.8 Other surgical procedures as the cause of abnormal reaction of the patient, or of later complication, without mention of misadventure at the time of the procedure | CPT/HCPCS: G0463 ==

== ENCOUNTER 2023-05-18 05:01 | Day surgery (SDC) | payer BC | END 2023-05-18 22:42 | disposition home or self-care (01) | LOC: WOUND 05:01 | DX: T86.838 Other complications of bone graft (principal); T81.32XS Disruption of internal operation (surgical) wound, not elsewhere classified, sequela; M87.172 Osteonecrosis due to drugs, left ankle; Y83.8 Other surgical procedures as the cause of abnormal reaction of the patient, or of later complication, without mention of misadventure at the time of the procedure | CPT/HCPCS: 87081; G0463 ==

== ENCOUNTER 2023-06-01 05:12 | Day surgery (SDC) | payer BC | END 2023-06-01 22:52 | disposition home or self-care (01) | LOC: WOUND 05:12 | DX: T86.838 Other complications of bone graft (principal); T81.32XD Disruption of internal operation (surgical) wound, not elsewhere classified, subsequent encounter; M87.172 Osteonecrosis due to drugs, left ankle | CPT/HCPCS: G0463 ==

== ENCOUNTER 2023-06-20 02:23 | Day surgery (SDC) | payer BC ==
[~2023-06-20 02:23] MED LIST changes: -GABA100; +GABA100 PO; +LITH300ER PO; -LITHIUM CARBON PO; -MOTRIN IB200 MG; +MOTRIN IB200 MG PO
== END 2023-06-20 22:48 | disposition home or self-care (01) ==
LOC: WOUND 02:23
DX: T86.838 Other complications of bone graft (principal); T81.32XS Disruption of internal operation (surgical) wound, not elsewhere classified, sequela; M87.172 Osteonecrosis due to drugs, left ankle
CPT/HCPCS: G0463

== ENCOUNTER 2023-06-28 02:39 | Day surgery (SDC) | payer BC | END 2023-06-29 22:50 | disposition home or self-care (01) | LOC: WOUND 02:39 | DX: T86.838 Other complications of bone graft (principal); T81.32XS Disruption of internal operation (surgical) wound, not elsewhere classified, sequela; Y83.8 Other surgical procedures as the cause of abnormal reaction of the patient, or of later complication, without mention of misadventure at the time of the procedure; M87.172 Osteonecrosis due to drugs, left ankle | CPT/HCPCS: G0463 ==

== ENCOUNTER 2023-07-06 03:15 | Day surgery (SDC) | payer BC ==
[~2023-07-06 03:15] MED LIST changes: -LITH300ER PO; +LITHIUM CARBON PO
== END 2023-07-06 23:09 | disposition home or self-care (01) ==
LOC: WOUND 03:15
DX: T86.838 Other complications of bone graft (principal); M87.172 Osteonecrosis due to drugs, left ankle; T81.32XS Disruption of internal operation (surgical) wound, not elsewhere classified, sequela; Y83.8 Other surgical procedures as the cause of abnormal reaction of the patient, or of later complication, without mention of misadventure at the time of the procedure
CPT/HCPCS: G0463

== ENCOUNTER 2023-07-13 04:09 | Day surgery (SDC) | payer BC ==
[~2023-07-13 04:09] MED LIST changes: +LITH300ER PO; -LITHIUM CARBON PO
== END 2023-07-13 22:44 | disposition home or self-care (01) ==
LOC: WOUND 04:09
DX: T86.838 Other complications of bone graft (principal); T81.32XS Disruption of internal operation (surgical) wound, not elsewhere classified, sequela; M87.172 Osteonecrosis due to drugs, left ankle; Y83.8 Other surgical procedures as the cause of abnormal reaction of the patient, or of later complication, without mention of misadventure at the time of the procedure
CPT/HCPCS: G0463

== ENCOUNTER 2023-07-17 08:43 | Day surgery (SDC) | payer BC ==
[2023-07-17] VITALS (16 sets, daily range): BP systolic 113–140; BP diastolic 62–88
[~2023-07-17] VITALS: Ht 157.5 cm; Wt 84.7 kg
--- NOTE | 2023-07-17 09:58 | NUR ---
Ambulatory in Day Surgery WITH CANE. CANE AND BELONGINGS PLACED UNDER THE BED. Surgical site prepped with 2% Chlorhexidine cloth wipe. History, Chart, Medications and Allergies reviewed before start of procedure. Lungs clear T/O to Auscultation. Patient confirms NPO status and agrees with scheduled surgery. Pre-Op teaching done. Pt verbalizes understanding.
--- NOTE | 2023-07-17 10:51 | NUR ---
07/17/23 1051 Marley Ferro SPINAL NERVE BLOCK COMPLETED BY DR. ANDERSON UPON ENTRY TO OR. PT TOLERATED WELL.
--- NOTE | 2023-07-17 13:00 | NUR ---
ARRIVAL TO SURGICAL FLOOR VIA HOSPITAL BED. ASSESSMENT CHARTED. SPINAL WORKING WELL FOR PAIN. ABLE TO PUMP ANKLES. DENIES N/V. SNACKS & DRINKS GIVEN.
--- NOTE | 2023-07-17 17:46 | NUR ---
SHIFT SUMMARY PT HAS DONE WELL POST OP. SPINAL WORE OFF & DID REQUIRE x 1 IV PAIN MEDS. UP TO VOID, WORKED w/ THERAPY, & DINNER UP IN CHAIR. EATING, DRINKING; PT WAS NERVOUS ABOUT POST UP NAUSEA, BUT HAPPILY HASN'T HAD ANY.
[2023-07-18 04:24] VITALS: BP 140/70
--- NOTE | 2023-07-18 04:41 | NUR ---
SHIFT [facility] S/P R NANCY. [facility] WITH POLAR PACK IN PLACE. PT HAS FULL SENSATION AND HAS BEEN OOB TO BRP WITH 1 SBA USING FWW + GB. VOIDING SPONTANEOUSLY. [place] PO. IV INFILTRATED AND PT DECLINES NEW IV. 2 ROXICODONE/TYLENOL/TORADOL FOR PAIN MANAGEMENT. VSS. USES CALL LIGHT APPROPRIATELY.
[2023-07-18 05:23] LABS: BASOPHILS ABSOLUTE AUTO 0.03 K/mm3 (0.00-0.23); BASOPHILS PERCENT AUTO 0 % (0-2); EOSINOPHILS ABSOLUTE AUTO 0.49 K/mm3 (0.00-0.68); EOSINOPHILS PERCENT AUTO 6 % (0-6); Hematocrit 31.8 % (33.0-51.0); Hemoglobin 10.2 g/dL (11.5-16.0); IMMATURE GRAN ABSOLUTE AUTO 0.03 K/mm3 (0.00-0.10); IMMATURE GRAN PERCENT AUTO 0 % (0-1); LYMPHOCYTES ABSOLUTE AUTO 1.42 K/mm3 (0.84-5.20); LYMPHOCYTES PERCENT AUTO 18 % (21-46); MONOCYTES ABSOLUTE AUTO 0.57 K/mm3 (0.16-1.47); MONOCYTES PERCENT AUTO 7 % (4-13); Mean Corpuscular HGB 31.2 pg (26.0-34.0); Mean Corpuscular HGB Conc 32.1 g/dL (31.5-36.5); Mean Corpuscular Volume 97 fL (80-100); Mean Platelet Volume 10.7 fL (9.1-12.4); NEUTROPHILS ABSOLUTE AUTO 5.36 K/mm3 (1.96-9.15); NEUTROPHILS PERCENT AUTO 68 % (41-73); Platelet Count 295 K/mm3 (150-400); RDW Coefficient Variation 12.9 % (11.7-14.2); RDW Standard Deviation 46.1 fL (35.1-46.3); Red Blood Cell Count 3.27 M/mm3 (3.80-5.20)
[2023-07-18 05:47] LABS: Bun/Creatinine Ratio 16.3 (12.0-20.0); Calcium, Blood 8.4 mg/dL (8.5-10.1); Creatinine, Blood 0.67 mg/dL (0.40-1.00); Potassium, Blood 3.8 mmol/L (3.5-5.5)
[2023-07-18 07:19] VITALS: BP 128/85
[2023-07-18] MEDS ORDERED: ASPI81CH PO (08:49)
[2023-07-18] MEDS ORDERED: Percocet 5-3251 EACH PO (08:49)
--- NOTE | 2023-07-18 09:30 | NUR ---
DISCHARGE EDUCATION COMPLETED. WAITING FOR RIDE.
--- NOTE | 2023-07-18 10:10 | NUR ---
DISCHARGE PT HAS CLEARED THERAPY. PAIN WELL CONTROLLED. EATING, DRINKING, & VOIDING WELL. DRSGS, SCRIPT, & POLAR PACK SENT w/ PT. ESCORTED OUT VIA W/C.
== END 2023-07-18 10:10 | disposition home or self-care (01) ==
LOC: ORSCMMR 08:43 → ORD 09:15 → ORSCMMR 10:00 → ORD 10:00 → SURS 12:53 → ORSCMMR 07-18 10:10
PROVIDERS: Orthopaedic Surgery
PROC: 0SR90JZ Replacement of Right Hip Joint with Synthetic Substitute, Open Approach (ICD-10-PCS; principal; 2023-07-17 09:15)
DX: M16.11 Unilateral primary osteoarthritis, right hip (principal); M87.9 Osteonecrosis, unspecified; Z68.33 Body mass index [BMI] 33.0-33.9, adult; Z79.899 Other long term (current) drug therapy; J45.909 Unspecified asthma, uncomplicated; F41.8 Other specified anxiety disorders; F17.210 Nicotine dependence, cigarettes, uncomplicated
CPT/HCPCS: 36415; 72170; 80048; 85025; 97110; 97116; 97162; A9270; C1776; J0171; J0690; J0735; J1170; J1885; J2250; J2405; J2704; J2795; J7120

== ENCOUNTER 2023-07-20 03:15 | Day surgery (SDC) | payer BC ==
[~2023-07-20 03:15] MED LIST changes: +ASPI81CH PO; +Percocet 5-3251 EACH PO
== END 2023-07-21 00:01 | disposition home or self-care (01) ==
LOC: WOUND 03:15
DX: T86.838 Other complications of bone graft (principal); T81.32XS Disruption of internal operation (surgical) wound, not elsewhere classified, sequela; M87.172 Osteonecrosis due to drugs, left ankle; Y83.8 Other surgical procedures as the cause of abnormal reaction of the patient, or of later complication, without mention of misadventure at the time of the procedure
CPT/HCPCS: G0463

== ENCOUNTER → 2024-04-11 | Outpatient (CLI) | payer OTHER | END | disposition home or self-care (01) | LOC: LAB 13:03 → LAB SHORT 13:03 | DX: L02.415 Cutaneous abscess of right lower limb (principal) | CPT/HCPCS: 87070; 87075; 87205 ==

== ENCOUNTER → 2024-05-08 | Outpatient (CLI) | payer OTHER ==
[2024-05-08 19:57] LABS: BASOPHILS ABSOLUTE AUTO 0.06 K/mm3 (0.00-0.23); BASOPHILS PERCENT AUTO 1 % (0-2); EOSINOPHILS PERCENT AUTO 7 % (0-6); Hematocrit 36.3 % (33.0-51.0); Hemoglobin 11.8 g/dL (11.5-16.0); IMMATURE GRAN ABSOLUTE AUTO 0.01 K/mm3 (0.00-0.10); IMMATURE GRAN PERCENT AUTO 0 % (0-1); LYMPHOCYTES ABSOLUTE AUTO 1.51 K/mm3 (0.84-5.20); LYMPHOCYTES PERCENT AUTO 28 % (21-46); MONOCYTES ABSOLUTE AUTO 0.42 K/mm3 (0.16-1.47); MONOCYTES PERCENT AUTO 8 % (4-13); Mean Corpuscular HGB 32.7 pg (26.0-34.0); Mean Corpuscular HGB Conc 32.5 g/dL (31.5-36.5); Mean Corpuscular Volume 101 fL (80-100); Mean Platelet Volume 10.9 fL (9.1-12.4); NEUTROPHILS ABSOLUTE AUTO 3.02 K/mm3 (1.96-9.15); NEUTROPHILS PERCENT AUTO 56 % (41-73); Platelet Count 313 K/mm3 (150-400); RDW Coefficient Variation 13.3 % (11.7-14.2); RDW Standard Deviation 49.4 fL (35.1-46.3); Red Blood Cell Count 3.61 M/mm3 (3.80-5.20); White Blood Cell Count 5.42 K/mm3 (4.00-11.30)
[2024-05-08 20:05] LABS: Percent Saturation 30.7 % (15.0-50.0)
== END ==
LOC: LAB 18:35 → LAB SHORT 18:35
PROVIDERS: Internal Medicine Hematology & Oncology
DX: D50.9 Iron deficiency anemia, unspecified (principal)
CPT/HCPCS: 82728; 83540; 83550; 85025

== ENCOUNTER 2024-06-03 23:07 | Emergency (ER) | payer OTHER ==
[~2024-06-03] VITALS: Ht 157.5 cm; Wt 72.6 kg
[2024-06-03] MEDS ORDERED: PRAZOSIN HCL1 M2 PO (23:27)
[2024-06-03] MEDS ORDERED: VENL25 PO (23:27)
[2024-06-03] MEDS ORDERED: METHYLPHENIDATE27 MG PO (23:27)
[2024-06-03] MEDS ORDERED: EUTHYROX75 MC1 PO (23:28)
[2024-06-03] MEDS ORDERED: Albuterol 2.5 MG/3 ML VIAL INH SCH (23:40)
[2024-06-04 00:33] LABS: Influenza A, PCR NEGATIVE (NEGATIVE); Influenza B, PCR NEGATIVE (NEGATIVE); Resp Syncytial Virus, PCR NEGATIVE (NEGATIVE); SARS-Cov-2 (COVID-19) PCR, MMC NEGATIVE (NEGATIVE)
[2024-06-04] MEDS ORDERED: PRED20 PO (01:53)
[2024-06-04] MEDS ORDERED: PredniSONE 20 MG Tab PO ONE (01:55)
[2024-06-04 02:04] VITALS: BP 115/76
== END 2024-06-04 02:09 | disposition home or self-care (01) ==
LOC: ER 23:07
PROVIDERS: Emergency Medicine
DX: J45.901 Unspecified asthma with (acute) exacerbation (principal); Z79.890 Hormone replacement therapy; Z79.82 Long term (current) use of aspirin; Z79.899 Other long term (current) drug therapy
CPT/HCPCS: 0241U; 71046; 94644; 94664; 99285-25; J7512

== ENCOUNTER 2024-10-21 11:37 | Day surgery (SDC) | payer OTHER ==
[2024-10-21] VITALS (11 sets, daily range): BP systolic 108–124; BP diastolic 58–84
[~2024-10-21] VITALS: Ht 157.5 cm; Wt 70.0 kg
[~2024-10-21 11:37] MED LIST changes: +Acetaminophen 500 MG Tab PO SCH; +CeFAZolin Sodium 2,000 MG in NS 100 ML IV SCH; +Chlorhexidine Mouth Care 15 ML UDC MT SCH; +EUTHYROX75 MC1 PO; +Lactated Ringer's 1,000 ML IV SCH; +METHYLPHENIDATE36 MG PO; +OxyCODONE HCL 10 MG TABCR PO SCH; +PRAZOSIN HCL1 M2 PO; +PRED20 PO; +Ropivacaine 0.5% HCl/Pf 123.125 MG,EPINEPHrine HCL 0.25 MG,Ketorolac Tromethamine 15 MG... INFIL SCH; +Tranexamic Acid 100 ML IV SCH
[2024-10-21] MEDS ORDERED: Promethazine HCl 25 MG Tab PO PRN (12:05)
[2024-10-21] MEDS ORDERED: Ondansetron HCl 2 MG / ML 2ML Vial IV PRN (12:05)
[2024-10-21] MEDS ORDERED: Metoclopramide HCl 5MG / ML 2ML Vial IV PRN (12:05)
[2024-10-21] MEDS ORDERED: FLU VACC TS2024-25(6MOS UP)/PF 45 MCG/0.5 ML SYRINGE IM PRN (12:10)
[2024-10-21] MEDS ORDERED: OxyCODONE HCL 5 MG TAB PO PRN ×2 (12:10)
[2024-10-21] MEDS ORDERED: Magnesium Hydroxide Conc 10 ML UDC PO PRN (12:10)
[2024-10-21] MEDS ORDERED: HYDROmorphone HCl/Pf 1MG SYR IV PRN (12:10)
--- NOTE | 2024-10-21 12:14 | NUR ---
Ambulatory in Day Surgery. History, Chart, Medications and Allergies reviewed before start of procedure. Lungs clear T/O to Auscultation. Patient confirms NPO status and agrees with scheduled surgery. Pre-Op teaching done. Pt verbalizes understanding. PT BOYFRIEND AT BEDSIDE. PT BELONGINGS BAG GIVEN TO HER BOYFRIEND FOR SAFEKEEPING. PT HAS NOSE RING THAT CANNOT BE REMOVED. JEWELRY TAPED, JEWELRY WAIVER SIGNED AND OR TEAM NOTIFIED.
[2024-10-21] MEDS ORDERED: Bisacodyl 10 MG Supp PR PRN (12:15)
[2024-10-21] MEDS ORDERED: Lactated Ringer's 1,000 ML IV SCH (12:15)
[2024-10-21] MEDS ORDERED: DiphenhydrAMINE HCL 25 MG Cap PO PRN (12:15)
--- NOTE | 2024-10-21 12:17 | NUR ---
REPORT GIVEN TO DIPIKA HAMILTON TO ASSUME CARE OF PT AT THIS TIME.
[2024-10-21] MEDS ORDERED: Ketorolac Tromethamine 30mg Vial ONE (12:24)
[2024-10-21] MEDS ORDERED: Ondansetron HCl 2 MG / ML 2ML Vial ONE (12:24)
[2024-10-21] MEDS ORDERED: Dexamethasone Sod Phos 10 MG/ML 1ML VIAL ONE (12:24)
[2024-10-21] MEDS ORDERED: propofoL 100 ML IV ONE (12:49)
[2024-10-21] MEDS ORDERED: Bupivacaine 0.5% Inj 10 ML Vial ONE (12:49)
[2024-10-21] MEDS ORDERED: VENL75ER PO (12:58)
[2024-10-21] MEDS ORDERED: FentaNYL Citrate 50 MCG/ML 2 ML Injection ONE (13:08)
[2024-10-21] MEDS ORDERED: Metoclopramide HCl 5MG / ML 2ML Vial ONE (13:14)
[2024-10-21] MEDS ORDERED: DiphenhydrAMINE HCl 50 MG/ML 1ML Vial ONE (13:48)
[2024-10-21] MEDS ORDERED: ePHEDrine Sulfate 50 MG/ML 1ML Injection ONE (14:20)
[2024-10-21] MEDS ORDERED: propofoL 40 ML IV ONE ×2 (14:46→14:56)
[2024-10-21] MEDS ORDERED: Phenylephrine HCl 100 MCG/ML-NS 10MLSYR (1MG/10ML) ONE (14:48)
[2024-10-21] MEDS ORDERED: Acetaminophen 500 MG Tab PO SCH (16:00)
--- NOTE | 2024-10-21 16:31 | NUR ---
PT ARRIVED TO RM 221 FROM PACU AT APPROXIMATELY 1605. PT DENIES PAIN. SHE IS STARTING TO MOVE BLE. SENSATION REMAINS DECREASED FROM SPINAL ANESTHESIA. FAMILY AT BEDSIDE FOR SUPPORT. CALL LIGHT PLACED WITHIN REACH AND PT EDUCATED TO USE.
--- NOTE | 2024-10-21 17:11 | NUR ---
PT ARRIVED TO RM 221 FROM PACU AT 1605. PT DENIES PAIN. PT HAS DECREASED SENSATION AND ABLE TO MOVE HER BLE MINIMALLY, PT HAD SPINAL ANESTHESIA. PT EDUCATED TO USE THE CALL LIGHT. FAMILY AT BEDSIDE FOR SUPPORT.
[2024-10-21] MEDS ORDERED: Ketorolac Tromethamine 15mg Vial IV SCH (18:00)
[2024-10-21] MEDS ORDERED: ASPI81CH PO (18:25)
--- NOTE | 2024-10-21 18:49 | NUR ---
DISCHARGE PT DID NOT WORK w/ THERAPY, HOWEVER DID SHOW ABILITY TO AMBULATE WELL w/ STAFF & FWW. PAIN WELL CONTROLLED. EATING, DRINKING, & VOIDING WELL. [place] & POLAR PACK SENT w/ PT. ESCORTED OUT VIA W/C.
[2024-10-21] MEDS ORDERED: Prazosin HCl 1 MG Cap PO SCH (21:00)
[2024-10-21] MEDS ORDERED: Docusate Sodium 100 MG Cap PO SCH (21:00)
[2024-10-21] MEDS ORDERED: CeFAZolin Sodium 2,000 MG in NS 100 ML IV SCH (22:00)
[2024-10-22] MEDS ORDERED: Levothyroxine Sodium 0.075 MG Tab PO SCH (06:00)
[2024-10-22] MEDS ORDERED: Venlafaxine HCl 75 MG CapCR PO SCH (09:00)
[2024-10-22] MEDS ORDERED: Aspirin 81 MG Chew PO SCH (09:00)
== END 2024-10-21 19:00 | disposition home or self-care (01) ==
LOC: ORSCMMR 11:37 → ORD 12:30 → SURS 16:16 → ORSCMMR 19:00
PROVIDERS: Orthopaedic Surgery
PROC: 0SRC0JA Replacement of Right Knee Joint with Synthetic Substitute, Uncemented, Open Approach (ICD-10-PCS; principal; 2024-10-21 13:30)
PROC: 8E0Y0CZ Robotic Assisted Procedure of Lower Extremity, Open Approach (ICD-10-PCS; principal; 2024-10-21 13:30)
DX: M17.11 Unilateral primary osteoarthritis, right knee (principal); M87.9 Osteonecrosis, unspecified; J45.909 Unspecified asthma, uncomplicated; Z87.891 Personal history of nicotine dependence; E03.9 Hypothyroidism, unspecified; F41.9 Anxiety disorder, unspecified; F32.A Depression, unspecified; Z79.899 Other long term (current) drug therapy
CPT/HCPCS: 73560-RT; A9270; C1713; C1776; J0171; J0690; J0735; J1100; J1200; J1885; J2371; J2405; J2704; J2765; J2795; J3010; J7120

== ENCOUNTER → 2024-11-12 | Outpatient (CLI) | payer OTHER ==
[~2024-11-12] MED LIST changes: -Acetaminophen 500 MG Tab PO SCH; -CeFAZolin Sodium 2,000 MG in NS 100 ML IV SCH; -Chlorhexidine Mouth Care 15 ML UDC MT SCH; -Lactated Ringer's 1,000 ML IV SCH; -OxyCODONE HCL 10 MG TABCR PO SCH; -Ropivacaine 0.5% HCl/Pf 123.125 MG,EPINEPHrine HCL 0.25 MG,Ketorolac Tromethamine 15 MG... INFIL SCH; -Tranexamic Acid 100 ML IV SCH; +VENL75ER PO
[2024-11-18 16:08] LABS: C. TRACHOMATIS BY TMA,THINPREP Negative (Negative); N. GONORRHOEAE BY TMA,THINPREP Negative (Negative); SPECIMEN SOURCE Cervical
[2024-11-24 09:57] LABS: HPV HIGH RISK BY TMA Not Detected; HPV SOURCE Cervical
== END ==
LOC: LAB 17:27 → LAB SHORT 17:27
PROVIDERS: Obstetrics & Gynecology
DX: Z01.419 Encounter for gynecological examination (general) (routine) without abnormal findings (principal); Z11.3 Encounter for screening for infections with a predominantly sexual mode of transmission
CPT/HCPCS: 87491; 87591; 87624; G0123